=== PATIENT | male | born 1980 | race Caucasian/White ===

== ENCOUNTER 2019-04-06 17:17 | Inpatient (IN) | payer MEDICAID ==
[~2019-04-06] VITALS: Ht 182.9 cm; Wt 77.6 kg
[2019-04-06 17:46] VITALS: BP_SYST 97
[2019-04-06 18:21] LABS: MEAN CORPUSCULAR VOLUME 61 fL (79.0-98.0)
[2019-04-06 18:32] LABS: HEMATOCRIT 27.2 % (36-54); HEMOGLOBIN 7.3 g/dL (14.0-18.0); MEAN CORPUSCULAR HEMOGLOBIN 16 pg (27-31); MEAN CORPUSCULAR HGB CONC 27 % (32-36); RED BLOOD CELL COUNT(AUTO) 4.45 MIL/uL (4.2-6.2); RED CELL DISTRIBUTION WIDTH 20.2 % (9.0-15.0); WHITE BLOOD COUNT (AUTO) 5.7 K/uL (4.8-10.8)
[2019-04-06 18:33] LABS: PLATELET COUNT (AUTO) 167 K/uL (130-430)
[2019-04-06 18:35] LABS: CALCIUM 9.4 mg/dL (8.4-11.0); CREATININE 0.9 mg/dL (0.55-1.30); POTASSIUM 3.6 mmol/L (3.5-5.1)
[2019-04-06 18:49] LABS: PROTHROMBIN TIME 10.7 SECS (9.5-12.5)
[2019-04-06 18:51] LABS: ALBUMIN 3.7 g/dL (3.4-4.8); FREE T4 (FREE THYROXINE) 0.6 ng/dL (0.6-1.6); TOTAL BILIRUBIN 0.8 mg/dL (0.0-1.0)
[2019-04-06 18:58] LABS: BILIRUBIN,URINE 1+ (NEGATIVE); BLOOD, URINE 1+ (NEGATIVE); CLARITY/URINE SL HAZY (CLEAR); COLOR,URINE YELLOW (YELLOW); GLUCOSE,URINE 2+ (NEGATIVE); KETONES,URINE 1+ (NEGATIVE); LEUKOCYTE ESTERASE ,URINE 1+ (NEGATIVE); NITRITE, URINE NEGATIVE (NEGATIVE); PROTEIN URINE 2+ (NEGATIVE); UROBILINOGEN,URINE 0.2 (0.2-1.0)
[2019-04-06] MEDS ORDERED: PANTOPRAZOLE SODIUM 40 MG/VIAL (PROTONIX) IVP ONE (19:00)
[2019-04-06 19:11] LABS: BARBITURATE, URINE NEGATIVE (NEG <=200); BENZODIAZEPINE, URINE NEGATIVE (NEG <=150); CANNABINOID, URINE NEGATIVE (NEG <=50); COCAINE, URINE NEGATIVE (NEG <=150); METHAMPHETAMINES SCREEN,URINE NEGATIVE (NEG <=500); OPIATE, URINE NEGATIVE (NEG <=100); PHENCYCLIDINE SCREEN,URINE NEGATIVE (NEG <=25); UR TRICYCLIC ANTIDEPRESSANTS NEGATIVE (NEG <=300); URINE AMPHETAMINE NEGATIVE (NEG <=500); URINE METHADONE NEGATIVE (NEG <=200); URINE OXYCODONE SCREEN NEGATIVE (NEG <=100); URINE PROPOXYPHENE SCREEN NEGATIVE (NEG <=300)
[2019-04-06 19:21] LABS: BAND % (MANUAL) 10 % (0-6); LYMPHOCYTES % (MANUAL) 27 % (20-46)
[2019-04-06 19:22] LABS: BASOPHILS % (MANUAL) 0 % (0-2); EOSINOPHILS % (MANUAL) 1 % (0-7); MONOCYTES % (MANUAL) 9 % (0-11)
[2019-04-06 19:34] LABS: BACTERIA,URINE FEW /HPF (None Seen)
[2019-04-06] MEDS ORDERED: NACL 0.9% 1,000 ML IV ONE (20:00)
[2019-04-06] MEDS ORDERED: FOLIC ACID 1 MG, THIAMINE HCL 100 MG, MAGNESIUM SULFATE 1 GM, MVI 10 ML in NACL 0.9% 1,... IV ONE (20:15)
[2019-04-06] MEDS ORDERED: FOLIC ACID 1 MG, THIAMINE HCL 100 MG, MAGNESIUM SULFATE 1 GM, MVI 10 ML in NACL 0.9% 1,... IV SCH (20:15)
[2019-04-06] MEDS ORDERED: THIAMINE HCL 100 MG/ML VIAL ONE (20:28)
[2019-04-06] MEDS ORDERED: MAGNESIUM SULFATE 1 GM/2 ML VIAL ONE (20:28)
[2019-04-06] MEDS ORDERED: FOLIC ACID 5 MG/ML VIAL IV ONE (20:28)
[2019-04-06] MEDS ORDERED: MVI 10 ML VIAL IV ONE (20:28)
[2019-04-06 20:35] VITALS: BP_SYST 125
[2019-04-06 21:20] VITALS: BP_SYST 125
[2019-04-06] MEDS ORDERED: HYDROcodone/ACETAMIN 5-325 MG TAB (NORCO/ VICODIN) PO PRN (21:30)
[2019-04-06] MEDS: HYDROcodone/ACETAMIN 5-325 MG TAB (NORCO/ VICODIN) PO PRN (21:39)
[2019-04-06] MEDS: PANTOPRAZOLE SODIUM 40 MG in NS 50 ML IV SCH (21:40)
[2019-04-06] MEDS ORDERED: PANTOPRAZOLE SODIUM 40 MG/VIAL (PROTONIX) ONE (21:46)
[2019-04-06] MEDS ORDERED: TEMAZEPAM 15 MG CAPSULE PO PRN (22:45)
[2019-04-06] MEDS ORDERED: LORazepam 2 MG/ML VIAL IVP PRN (22:45)
[2019-04-06 23:37] VITALS: BP_SYST 116
[2019-04-06] MEDS: cefTRIAXone 1 GM in D5W 50 ML IV SCH (23:44)
[2019-04-06] MEDS: LORazepam 1 MG TABLET PO SCH (23:44)
[2019-04-06] MEDS ORDERED: cefTRIAXone 1 GM VIAL ONE (23:48)
[2019-04-07 00:38] VITALS: BP_SYST 116
[2019-04-07] MEDS: PANTOPRAZOLE SODIUM 40 MG in NS 50 ML IV SCH ×5 (01:34→20:35)
[2019-04-07] MEDS ORDERED: PANTOPRAZOLE SODIUM 40 MG/VIAL (PROTONIX) ONE ×2 (01:38→05:39)
[2019-04-07] MEDS: HYDROcodone/ACETAMIN 5-325 MG TAB (NORCO/ VICODIN) PO PRN ×6 (01:39→23:18)
[2019-04-07 07:41] LABS: TOTAL IRON BIND. CAPACITY 380 ug/dL (250-450)
[2019-04-07 07:47] LABS: CALCIUM 8.9 mg/dL (8.4-11.0); CREATININE 0.63 mg/dL (0.55-1.30); THYROID STIMULATING HORMONE 6.28 uIu/mL (0.34-4.82)
[2019-04-07 08:15] LABS: MEAN CORPUSCULAR HEMOGLOBIN 17 pg (27-31); MEAN CORPUSCULAR HGB CONC 29 % (32-36); MEAN CORPUSCULAR VOLUME 60 fL (79.0-98.0); PLATELET COUNT (AUTO) 186 K/uL (130-430); RED BLOOD CELL COUNT(AUTO) 3.58 MIL/uL (4.2-6.2); RED CELL DISTRIBUTION WIDTH 19.5 % (9.0-15.0); WHITE BLOOD COUNT (AUTO) 5.1 K/uL (4.8-10.8)
[2019-04-07 08:22] LABS: HEMOGLOBIN 6.1 g/dL (14.0-18.0)
[2019-04-07 08:23] LABS: HEMATOCRIT 21.5 % (36-54)
[2019-04-07 08:57] LABS: ATYPICAL LYMPHOCYTES % 0 % (0-0); BAND % (MANUAL) 2 % (0-6); BASOPHILS % (MANUAL) 0 % (0-2); EOSINOPHILS % (MANUAL) 2 % (0-7); LYMPHOCYTES % (MANUAL) 13 % (20-46); MONOCYTES % (MANUAL) 6 % (0-11)
[2019-04-07] MEDS: THIAMINE HCL 100 MG TABLET PO SCH (09:21)
[2019-04-07] MEDS: FOLIC ACID 1 MG TABLET PO SCH (09:22)
[2019-04-07] MEDS: LORazepam 1 MG TABLET PO SCH ×2 (09:23→20:35)
[2019-04-07] MEDS ORDERED: DIATR MEGLU/DIATRIZ SOD 30 ML SOLUTION PO ONE (09:37)
[2019-04-07 10:46] VITALS: BP_SYST 118
[2019-04-07 13:08] VITALS: BP_SYST 124
[2019-04-07 17:06] VITALS: BP_SYST 111
[2019-04-07 20:00] VITALS: BP_SYST 119
[2019-04-07] MEDS: cefTRIAXone 1 GM in D5W 50 ML IV SCH (23:18)
[2019-04-08 00:42] VITALS: BP_SYST 111
[2019-04-08] MEDS: PANTOPRAZOLE SODIUM 40 MG in NS 50 ML IV SCH ×5 (02:01→22:34)
[2019-04-08] MEDS: HYDROcodone/ACETAMIN 5-325 MG TAB (NORCO/ VICODIN) PO PRN ×4 (03:19→21:04)
[2019-04-08 07:27] LABS: CALCIUM 9.3 mg/dL (8.4-11.0); CREATININE 0.57 mg/dL (0.55-1.30); POTASSIUM 3.5 mmol/L (3.5-5.1); TOTAL BILIRUBIN 1.7 mg/dL (0.0-1.0)
[2019-04-08 08:06] VITALS: BP_SYST 118
[2019-04-08 08:43] LABS: HEMATOCRIT 27.5 % (36-54); HEMOGLOBIN 8.1 g/dL (14.0-18.0); MEAN CORPUSCULAR HEMOGLOBIN 19 pg (27-31); MEAN CORPUSCULAR HGB CONC 29 % (32-36); MEAN CORPUSCULAR VOLUME 64 fL (79.0-98.0); RED CELL DISTRIBUTION WIDTH 22.8 % (9.0-15.0)
[2019-04-08 08:52] LABS: PLATELET COUNT (AUTO) 105 K/uL (130-430)
[2019-04-08] MEDS: THIAMINE HCL 100 MG TABLET PO SCH (08:55)
[2019-04-08] MEDS: FOLIC ACID 1 MG TABLET PO SCH (08:55)
[2019-04-08] MEDS: LORazepam 1 MG TABLET PO SCH ×2 (08:55→22:34)
[2019-04-08 11:03] LABS: ATYPICAL LYMPHOCYTES % 0 % (0-0); BAND % (MANUAL) 2 % (0-6); BASOPHILS % (MANUAL) 0 % (0-2); EOSINOPHILS % (MANUAL) 0 % (0-7); LYMPHOCYTES % (MANUAL) 19 % (20-46); MONOCYTES % (MANUAL) 6 % (0-11)
[2019-04-08 12:36] VITALS: BP_SYST 114
[2019-04-08] MEDS: SOD FERRIC GLUC COMPLEX/SUC 125 MG in NS 100 ML IV SCH (15:26)
[2019-04-08 16:41] VITALS: BP_SYST 118
[2019-04-08 20:00] VITALS: BP_SYST 123
[2019-04-08] MEDS: cefTRIAXone 1 GM in D5W 50 ML IV SCH (22:34)
[2019-04-09 00:21] VITALS: BP_SYST 125
[2019-04-09] MEDS: HYDROcodone/ACETAMIN 5-325 MG TAB (NORCO/ VICODIN) PO PRN ×5 (01:30→20:06)
[2019-04-09] MEDS: PANTOPRAZOLE SODIUM 40 MG in NS 50 ML IV SCH ×4 (03:24→18:21)
[2019-04-09 05:12] LABS: HEPATITIS A AB, IgM Negative (Negative); HEPATITIS B CORE AB, IgM Negative (Negative); HEPATITIS B SURFACE AG Negative (Negative)
[2019-04-09 07:17] LABS: BASOPHILS % (AUTO) 0.9 % (0.0-2.0); EOSINOPHILS # (AUTO) 0.1 K/uL (0.0-0.4); EOSINOPHILS % (AUTO) 2.3 % (0.0-4.0); HEMOGLOBIN 7.9 g/dL (14.0-18.0); LYMPHOCYTES % (AUTO) 23.9 % (20.5-51.5); MEAN CORPUSCULAR HEMOGLOBIN 19 pg (27-31); MEAN CORPUSCULAR HGB CONC 29 % (32-36); MEAN CORPUSCULAR VOLUME 64 fL (79.0-98.0); MONOCYTES # (AUTO) 0.4 K/uL (0.0-1.0); MONOCYTES % (AUTO) 9.9 % (1.7-9.3); NEUTROPHILS # (AUTO) 2.7 K/uL (1.8-7.7); PLATELET COUNT (AUTO) 139 K/uL (130-430); RED BLOOD CELL COUNT(AUTO) 4.19 MIL/uL (4.2-6.2); RED CELL DISTRIBUTION WIDTH 23.4 % (9.0-15.0); WHITE BLOOD COUNT (AUTO) 4.2 K/uL (4.8-10.8)
[2019-04-09 07:29] LABS: ALBUMIN 2.9 g/dL (3.4-4.8); CALCIUM 9.3 mg/dL (8.4-11.0); CREATININE 0.65 mg/dL (0.55-1.30); POTASSIUM 3.3 mmol/L (3.5-5.1); TOTAL BILIRUBIN 0.9 mg/dL (0.0-1.0)
[2019-04-09 08:05] VITALS: BP_SYST 109
[2019-04-09] MEDS: THIAMINE HCL 100 MG TABLET PO SCH (08:55)
[2019-04-09] MEDS: LORazepam 1 MG TABLET PO SCH ×2 (08:55→22:05)
[2019-04-09] MEDS: FOLIC ACID 1 MG TABLET PO SCH (08:55)
[2019-04-09 12:51] VITALS: BP_SYST 112
[2019-04-09] MEDS ORDERED: POTASSIUM CHLORIDE 20 MEQ TAB.PRT.SR PO ONE (14:45)
[2019-04-09] MEDS: SOD FERRIC GLUC COMPLEX/SUC 125 MG in NS 100 ML IV SCH (15:48)
[2019-04-09 16:14] VITALS: BP_SYST 118
[2019-04-09 20:00] VITALS: BP_SYST 110
[2019-04-09] MEDS: cefTRIAXone 1 GM in D5W 50 ML IV SCH (22:05)
[2019-04-10] MEDS: HYDROcodone/ACETAMIN 5-325 MG TAB (NORCO/ VICODIN) PO PRN ×5 (00:07→20:56)
[2019-04-10] MEDS: PANTOPRAZOLE SODIUM 40 MG in NS 50 ML IV SCH ×5 (00:07→20:57)
[2019-04-10 01:34] VITALS: BP_SYST 109
[2019-04-10 08:00] VITALS: BP_SYST 110
[2019-04-10] MEDS: LORazepam 1 MG TABLET PO SCH ×2 (09:40→23:00)
[2019-04-10] MEDS: POTASSIUM CHLORIDE 20 MEQ TAB.PRT.SR PO SCH (09:41)
[2019-04-10] MEDS: FOLIC ACID 1 MG TABLET PO SCH (09:41)
[2019-04-10] MEDS: THIAMINE HCL 100 MG TABLET PO SCH (09:41)
[2019-04-10 11:57] LABS: BASOPHILS % (AUTO) 1.3 % (0.0-2.0); EOSINOPHILS # (AUTO) 0.1 K/uL (0.0-0.4); EOSINOPHILS % (AUTO) 2.7 % (0.0-4.0); HEMATOCRIT 26.4 % (36-54); HEMOGLOBIN 7.7 g/dL (14.0-18.0); LYMPHOCYTES # (AUTO) 0.9 K/uL (1.0-5.5); LYMPHOCYTES % (AUTO) 23.5 % (20.5-51.5); MEAN CORPUSCULAR HEMOGLOBIN 19 pg (27-31); MEAN CORPUSCULAR HGB CONC 29 % (32-36); MEAN CORPUSCULAR VOLUME 65 fL (79.0-98.0); MONOCYTES # (AUTO) 0.5 K/uL (0.0-1.0); MONOCYTES % (AUTO) 14.3 % (1.7-9.3); NEUTROPHILS # (AUTO) 2.2 K/uL (1.8-7.7); NEUTROPHILS % (AUTO) 58.2 % (40.0-70.0); PLATELET COUNT (AUTO) 106 K/uL (130-430); RED CELL DISTRIBUTION WIDTH 23.7 % (9.0-15.0); WHITE BLOOD COUNT (AUTO) 3.7 K/uL (4.8-10.8)
[2019-04-10 12:06] LABS: CALCIUM 8.9 mg/dL (8.4-11.0); CREATININE 0.67 mg/dL (0.55-1.30); POTASSIUM 3.8 mmol/L (3.5-5.1)
[2019-04-10 12:13] LABS: ALBUMIN 2.8 g/dL (3.4-4.8); TOTAL BILIRUBIN 0.8 mg/dL (0.0-1.0)
[2019-04-10 12:39] LABS: RED BLOOD CELL COUNT(AUTO) 4.04 MIL/uL (4.2-6.2)
[2019-04-10 12:48] VITALS: BP_SYST 106
[2019-04-10 16:28] VITALS: BP_SYST 114
[2019-04-10] MEDS: SOD FERRIC GLUC COMPLEX/SUC 125 MG in NS 100 ML IV SCH (16:41)
[2019-04-10 20:48] VITALS: BP_SYST 108
[2019-04-10] MEDS: cefTRIAXone 1 GM in D5W 50 ML IV SCH (21:02)
[2019-04-11] MEDS: HYDROcodone/ACETAMIN 5-325 MG TAB (NORCO/ VICODIN) PO PRN (01:21)
[2019-04-11 01:31] VITALS: BP_SYST 118
[2019-04-11] MEDS: PANTOPRAZOLE SODIUM 40 MG in NS 50 ML IV SCH ×3 (01:32→09:15)
[2019-04-11 07:41] LABS: CALCIUM 9.3 mg/dL (8.4-11.0); CREATININE 0.55 mg/dL (0.55-1.30); POTASSIUM 3.5 mmol/L (3.5-5.1)
[2019-04-11 08:00] VITALS: BP_SYST 102
[2019-04-11] MEDS: THIAMINE HCL 100 MG TABLET PO SCH (08:36)
[2019-04-11] MEDS: POTASSIUM CHLORIDE 20 MEQ TAB.PRT.SR PO SCH (08:37)
[2019-04-11] MEDS: FOLIC ACID 1 MG TABLET PO SCH (08:37)
[2019-04-11] MEDS: LORazepam 1 MG TABLET PO SCH (08:38)
[2019-04-11 10:07] LABS: HEMATOCRIT 29.7 % (36-54); HEMOGLOBIN 8.7 g/dL (14.0-18.0); MEAN CORPUSCULAR HEMOGLOBIN 20 pg (27-31); MEAN CORPUSCULAR HGB CONC 29 % (32-36); MEAN CORPUSCULAR VOLUME 68 fL (79.0-98.0); PLATELET COUNT (AUTO) 211 K/uL (130-430); RED BLOOD CELL COUNT(AUTO) 4.37 MIL/uL (4.2-6.2); RED CELL DISTRIBUTION WIDTH 24.6 % (9.0-15.0); WHITE BLOOD COUNT (AUTO) 3.4 K/uL (4.8-10.8)
[2019-04-11 12:05] LABS: BAND % (MANUAL) 2 % (0-6); BASOPHILS % (MANUAL) 0 % (0-2); EOSINOPHILS % (MANUAL) 6 % (0-7); LYMPHOCYTES % (MANUAL) 16 % (20-46); MONOCYTES % (MANUAL) 15 % (0-11)
== END 2019-04-11 12:14 | disposition left against medical advice (07) | DRG 253 ==
LOC: SED 17:17 → STU 20:02 → SMU 04-08 17:41
PROVIDERS: ADMIT Internal Medicine; ATTEND Internal Medicine
PROC: 30233N1 Transfusion of Nonautologous Red Blood Cells into Peripheral Vein, Percutaneous Approach (ICD-10-PCS; principal; 2019-04-07)
DX: K62.5 Hemorrhage of anus and rectum (principal); R65.11 Systemic inflammatory response syndrome (SIRS) of non-infectious origin with acute organ dysfunction; E87.8 Other disorders of electrolyte and fluid balance, not elsewhere classified; R16.2 Hepatomegaly with splenomegaly, not elsewhere classified; K86.1 Other chronic pancreatitis; E87.1 Hypo-osmolality and hyponatremia; K70.10 Alcoholic hepatitis without ascites; K70.30 Alcoholic cirrhosis of liver without ascites; F10.129 Alcohol abuse with intoxication, unspecified; D50.9 Iron deficiency anemia, unspecified; F32.9 Major depressive disorder, single episode, unspecified; D62 Acute posthemorrhagic anemia; Z53.21 Procedure and treatment not carried out due to patient leaving prior to being seen by health care provider; Z91.19 Patient's noncompliance with other medical treatment and regimen; Z59.0 Homelessness; Z79.899 Other long term (current) drug therapy
CPT/HCPCS: 36415; 71045; 74018; 76700-TC; 80048; 80053; 80074; 80307; 81000-TC; 82140-TC; 83540-TC; 83550-TC; 83605; 84439; 84443-TC; 85007; 85025; 85027; 85610-TC; 86886; 86900; 86901; 86920; 87040-TC; 87086; 93005; 96374; 99285; C9113; G0378; G0482; J0696; J2060; J2916; J3411; J3475; J3490; J7040; J7050; J7060; P9021; Q9964

== ENCOUNTER 2019-04-16 15:33 | Emergency (ER) | payer MEDICAID ==
[~2019-04-16] VITALS: Ht 182.9 cm; Wt 72.6 kg
[2019-04-16 15:44] VITALS: BP_SYST 100
[2019-04-16 16:12] VITALS: BP_SYST 100
== END 2019-04-16 16:16 ==
LOC: SED 15:33
DX: Z02.89 Encounter for other administrative examinations (principal); F10.129 Alcohol abuse with intoxication, unspecified; Y90.9 Presence of alcohol in blood, level not specified
CPT/HCPCS: 99283